=== PATIENT | male | born 1935 | race Caucasian/White ===

== ENCOUNTER → 2017-11-06 | Outpatient (CLI) | payer MEDICARE, OTHER ==
[~2017-11-06] MED LIST: ALLO100; COUM5TAB PO; FURO1TAB93 PO; KCL20; KEPP500T3 PO; LANO0.2510 PO; TOPR50TA PO
[2017-11-06 10:33] LABS: BICARBONATE 30.9 MEQ/L (21.0-32.0); BLOOD UREA NITROGEN 15 MG/DL (7-18); CALCIUM 8.9 MG/DL (8.5-10.1); CHLORIDE 108 MEQ/L (98-107); CREATININE 1.04 MG/DL (0.60-1.30); GLOMERULAR FILTRATION RATE 69 ML/MIN (>89); GLUCOSE,FASTING 127 MG/DL (74-99); SODIUM (NA) 146 MEQ/L (136-145)
[2017-11-06 10:35] LABS: CHOLESTEROL 89 MG/DL (120-200)
[2017-11-06 10:39] LABS: ALT (GPT) 26 U/L (12-78); CHOLESTEROL/ HDL RATIO 1.66 RATIO; HDL CHOLESTEROL 53.6 MG/DL (40.0-60.0); LDL CHOLESTEROL 18 MG/DL (0-99); TRIGLYCERIDES 88 MG/DL (42-150)
[2017-11-06 18:13] LABS: HEMOGLOBIN A1C 5.9 % (4.3-6.0)
== END ==
LOC: PLAB 06:47
PROVIDERS: ATTEND Psychiatry & Neurology Neurology
DX: I10 Essential (primary) hypertension (principal); G40.802 Other epilepsy, not intractable, without status epilepticus; R73.9 Hyperglycemia, unspecified; E78.00 Pure hypercholesterolemia, unspecified; Z51.81 Encounter for therapeutic drug level monitoring
CPT/HCPCS: 36415; 80048; 80061; 80177; 83036; 84460

== ENCOUNTER → 2017-11-25 | Outpatient (CLI) | payer MEDICARE, OTHER | LOC: PLAB 07:03 | PROVIDERS: ATTEND Psychiatry & Neurology Neurology | DX: G40.802 Other epilepsy, not intractable, without status epilepticus (principal) | CPT/HCPCS: 36415; 80177 ==